=== PATIENT | male | born 1955 | race African-American/Black ===

== ENCOUNTER 2024-07-11 08:15 | Outpatient (CLI) | payer MEDICARE, BC, SELFPAY ==
--- NOTE | ~2024-07-11 | PE_ITS ---
EXAMINATION: PET_PETPSMAST_PT DATE: 07/11/2024 10:23 INDICATION: Prostate cancer TECHNIQUE: 3.815 mCi of Illucix Ga-[id number]) was administered i.v. Low dose computed rajesh graphy (CT) images were acquired from the base of the brain to the base of the brain to the proximal thighs for attenuation correction and anatomic localization. Positron emission tomography (PET) image s were acquired in the same distribution beginning 87 minutes after injection. Images including fused PET/CT images were reconstructed in axial, coronal, and sagittal planes. Automated exposure control technique was employed. The dose-length product was 1056.84mGy-cm. COMPARISON: None FINDINGS: Head/neck: Typical pattern of symmetric physiologic increased activity in the lacrimal, parotid and submandibula r glands as well as along the mucosa of the nasal and oral cavities, pharynx and hypopharynx. No path ologically enlarged cervical lymphadenopathy or suspicious foci of increased uptake in the visualized head or neck. Chest: Mild discoid atelectasis in the right middle lobe. No suspicious pulmonary nodules, pneumonia, pulmon ivan edema or pleural effusion. Heart size is normal. Small amount of atherosclerotic coronary artery calcific location. No pericardial effusion. Thoracic aorta is normal caliber. No pathologically enlar ged or PSMA avid thoracic lymphadenopathy. Abdomen/pelvis/proximal thighs: Physiologic renal accumulation and excretion of activity in the kidneys, bladder and along portions o f ureters. Evaluation in the pelvis is limited by metallic streak artifact resulting from a plain scr ew fixation spanning the pubic symphysis, plate and screw fixation along the posterior column of the right acetabulum and screws spanning the left and right sacroiliac joints. Prostatomegaly with small focus of mild uptake at the left anterior prostate with maximal severe 4.9 likely representing the si te of the reported primary prostate cancer. Diffuse hepatic steatosis with focal sparing along the ga llbladder fossa. Normal degree and slightly heterogenous pattern of increased uptake throughout the l iver and spleen without radiologic correlate or dominant PSMA avid lesion. Multiple calcified gallsto raffaele in the otherwise normal-appearing gallbladder. The pancreas and bilateral adrenal glands are norm al. Moderate uptake scattered throughout the bowels with typical duodenal and proximal jejunal predom inance and without radiologic correlate, also likely physiologic. No other abnormal foci of increased uptake or pathologically enlarged lymphadenopathy in the abdomen, pelvis or proximal thighs. Musculoskeletal: Heterotopic ossification anterior to the left pubic body, about the right greater trochanter and terri g the posterior margin of the right acetabulum likely sequela of old trauma. Chronic L2 compression f racture. No suspicious lytic, blastic or PSMA avid bone lesions identified. IMPRESSION: 1. Mild uptake at the left anterior aspect of the enlarged prostate likely representing a site of a r eported primary prostate cancer. No evident metastatic disease. 2. Cholelithiasis. Reviewed, dictated and finalized at location A. [employer] IMPRESSION: 1. Mild uptake at the left anterior aspect of the enlarged prostate likely repr esenting a site of a reported primary prostate cancer. No evident metastatic di sease. 2. Cholelithiasis.
== END 2024-07-11 08:16 | disposition home or self-care (01) ==
PROVIDERS: Visit Provider Urology
DX: C61 Malignant neoplasm of prostate (principal); K80.20 Calculus of gallbladder without cholecystitis without obstruction
CPT/HCPCS: 78815; A9596